=== PATIENT | male | born 1935 | race Caucasian/White ===

== ENCOUNTER 2023-02-08 11:55 | Emergency (ER) | payer MEDICARE ==
[2023-02-08] MEDS ORDERED: Ketorolac Tromethamine 30 MG/ML VIAL ONE (12:19)
[2023-02-08] MEDS ORDERED: Cefepime 2 GM VIAL ONE (12:35)
[2023-02-08] MEDS ORDERED: Clindamycin/D5W 900 MG in Premix 1 BAG IVPB SCH (13:00)
[2023-02-08] MEDS ORDERED: Vancomycin 1.5 GRAM/300 ML BAG 1.5 GM in Premix 1 BAG IVPB SCH (13:00)
[2023-02-08 13:05] LABS: SARS-CoV-2 NAA Rapid Test Not Detected (NotDetected)
[2023-02-08 13:15] LABS: Hematocrit 36.9 % (38.8-50.0); Mean Corpuscular HGB CONC 32.5 g/dL (32.0-36.0); Mean Corpuscular Hemoglobin 30.6 pg (27.0-33.0); Mean Corpuscular Volume 94.1 fl (81.2-95.1); Mean Platelet Volume 8.8 fl (7.4-10.4); Platelet Count 273 10x3/uL (150-450); Red Blood Cell (RBC) Count 3.92 10x6/uL (4.32-5.72); White Blood Cell (WBC) Count 7.2 10x3/uL (3.5-10.5)
[2023-02-08 13:26] LABS: PTT 26.5 sec (22.0-33.0); Prothrombin Time 11.2 sec (9.5-12.1)
[2023-02-08 13:30] LABS: ALT (SGPT) 17 U/L (8-55); AST (SGOT) 23 U/L (5-34); Albumin 2.8 g/dL (3.4-4.8); Alkaline Phosphatase 27 U/L (40-110); Anion Gap 22 mmol/L (10-20); BUN (Urea Nitrogen) 35 mg/dL (8.4-25.7); Bilirubin, Total 0.4 mg/dL (0.2-1.2); Calc. Creatinine Clearance 0 mL/min (70-130); Calcium 7.9 mg/dL (7.8-10.44); Carbon Dioxide 13 mmol/L (23-31); Chloride 103 mmol/L (98-107); Estimated GFR 32; Glucose 187 mg/dL (83-110); Potassium 4.2 mmol/L (3.5-5.1); Protein, Total 4.8 g/dL (5.8-8.1); Sodium 134 mmol/L (136-145)
[2023-02-08 13:32] LABS: Band 14 % (5-11); Lymphocytes 8 % (21-51); Metamyelocyte 1 % (0-0); Monocytes 10 % (0-10)
[2023-02-08 13:35] LABS: Crenated RBC SLIGHT = 1-5 cells (100X) (None Seen); Platelet Adequacy Comment PLT clumps seen-ADEQ
[2023-02-08 14:05] LABS: Manual Diff?? YES
[2023-02-08 14:06] LABS: MDiff Complete? YES
[2023-02-08] MEDS ORDERED: NOREPINEPHRINE 8 MG/250 ML-D5W 250 ML ONE (15:29)
[2023-02-08] MEDS ORDERED: Albumin 25% 25 GM/100 ML BOT IVPB SCH (16:00)
== END 2023-02-08 17:13 | disposition short-term general hospital (02) ==
LOC: CSHERS 11:55
DX: A41.9 Sepsis, unspecified organism (principal); R65.21 Severe sepsis with septic shock; E11.9 Type 2 diabetes mellitus without complications; Z79.84 Long term (current) use of oral hypoglycemic drugs; Z20.822 Contact with and (suspected) exposure to COVID-19
CPT/HCPCS: 36415; 80053; 83605; 85025; 85610; 85730; 87040; 87077; 87149; 87186; J0692; J1885; J3370; J3490; P9047